=== PATIENT | male | born 1960 | race Two or more races ===

== ENCOUNTER 2022-09-18 06:53 | Day surgery (SDC) | payer OTHER | END 2022-09-18 12:10 | disposition home or self-care (01) | LOC: AMB-ENDOS 06:53 | PROVIDERS: ATTEND Colon & Rectal Surgery | DX: D12.3 Benign neoplasm of transverse colon (principal); D12.2 Benign neoplasm of ascending colon; D12.0 Benign neoplasm of cecum ==

== ENCOUNTER 2023-12-10 10:15 | Day surgery (SDC) | payer OTHER | END 2023-12-10 16:30 | disposition home or self-care (01) | LOC: CIR.AMB 10:15 | PROVIDERS: ATTEND Colon & Rectal Surgery | DX: D12.0 Benign neoplasm of cecum (principal); K63.5 Polyp of colon; D12.3 Benign neoplasm of transverse colon; K57.30 Diverticulosis of large intestine without perforation or abscess without bleeding; Z20.822 Contact with and (suspected) exposure to COVID-19 ==